=== PATIENT | female | born 1995 | race Caucasian/White ===

== ENCOUNTER → 2020-10-08 14:15 | Outpatient (BNVA) | payer SELFPAY | PROVIDERS: PCP Hospitalist | DX: Z11.1 Encounter for screening for respiratory tuberculosis (principal) ==

== ENCOUNTER → 2021-05-23 08:33 | Outpatient (BNVA) | payer BC, SELFPAY | PROVIDERS: PCP Hospitalist; Visit Provider Advanced Practice Midwife ==

== ENCOUNTER 2021-07-02 08:40 | Outpatient (REF) | payer BC, SELFPAY ==
[2021-07-03 13:46] LABS: CT PCR NOT DETECTED (Not Detect.); NG PCR NOT DETECTED (Not Detect.)
[2021-07-04 12:12] LABS: BV Int Neg Control Negative (Negative); BV Int Pos Control Positive (Positive)
[2021-07-17 20:37] LABS: HPV mRNA E6/E7 rflx Not Detected (Not Detected)
== END 2021-07-02 08:41 | disposition home or self-care (01) ==
LOC: HO.LAB 08:40
PROVIDERS: PCP Hospitalist; Visit Provider Advanced Practice Midwife
DX: Z30.432 Encounter for removal of intrauterine contraceptive device (principal); Z30.09 Encounter for other general counseling and advice on contraception; E66.9 Obesity, unspecified; Z20.2 Contact with and (suspected) exposure to infections with a predominantly sexual mode of transmission
CPT/HCPCS: 58301; 81025; 87480; 87491; 87510; 87591; 87624; 87660; 88142

== ENCOUNTER → 2022-04-02 09:16 | Outpatient (RCR) | payer OTHER, SELFPAY ==
[2020-04-25 06:59] LABS: COVID-19 Test Negative (Negative)
[2020-05-04 07:52] LABS: COVID-19 Test Negative (Negative); IDNOW Serial# 55D5AD1C
[2020-05-09 14:24] LABS: COVID-19 Test Negative (Negative)
[2020-05-15 09:48] LABS: COVID-19 Test Negative (Negative)
== END | disposition home or self-care (01) ==
LOC: HO.EMPCOV 04-25 06:31
PROVIDERS: Visit Provider Internal Medicine
DX: Z20.828 Contact with and (suspected) exposure to other viral communicable diseases (principal)
CPT/HCPCS: 87635; C9803

== ENCOUNTER 2023-01-19 10:31 | Outpatient (REF) | payer OTHER, SELFPAY ==
[2023-01-20 05:54] LABS: CT PCR NOT DETECTED (Not Detect.); NG PCR NOT DETECTED (Not Detect.)
[2023-01-20 12:06] LABS: BV Int Neg Control Negative (Negative); BV Int Pos Control Positive (Positive)
[2023-01-24 09:44] LABS: HPV mRNA E6/E7 rflx Not Detected (Not Detected)
== END 2023-01-19 10:32 | disposition home or self-care (01) ==
LOC: HO.LNP 10:31
PROVIDERS: PCP Hospitalist; Visit Provider Advanced Practice Midwife
DX: Z01.419 Encounter for gynecological examination (general) (routine) without abnormal findings (principal); Z11.51 Encounter for screening for human papillomavirus (HPV); Z87.42 Personal history of other diseases of the female genital tract
CPT/HCPCS: 0353U; 87480; 87510; 87624; 87660; 88142

== ENCOUNTER 2023-01-19 10:31 | Outpatient (AMB) | payer OTHER, SELFPAY ==
--- NOTE | 2023-01-19 11:13 | A.OFFVIS_ITS ---
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 She is open to but she and her partner are just enjoying the summer and while they are not planning to get very fixated on it she would love it if she would conceive in February so she could deliver. in November. 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 [facility] Medical History Hypertension Surgical History No pertinent past surgical history Family History Mother Primary ovarian malignancy of unknown cell type Father Bipolar 1 disorder, depressed Maternal Grandmother Ovarian cancer Brother In good health Social History (Updated 01/19/23 @ 11:21 by SMA Ivana) Alcohol intake: current Alcohol intake frequency: other Alcohol type: beer Patient Tobacco Use Status: Never used Tobacco Substance Use Type: Marijuana Gender identity: Female Female Reproductive History Menstrual Age of Menarche: 11 Duration of menses: 3-5 days Date of last menstrual period: 12/27/22 control method: none Total pregnancies: 0 Number of Living Children: 0 Date of last pap smear: 07/03/21 (ASCUS) History of abnormal pap smear: Yes Physical Exam Vital Signs: Last Vital Signs BP 120/54 L 01/19/23 11:16 BMI result Body Mass Index 36.5 Const General: healthy appearing, comfortable, no acute distress, well developed and alert Nutritional Appearance: average body habitus Orientation/consciousness: patient oriented x3 Limitations: no limitations HEENT Head: Yes normocephalic Neck Neck: Yes normal visual inspection Thyroid: Thyroid normal Chest Chest palpation & inspection: normal inspection of the chest Breast/axilla inspection: normal inspection of the breasts and normal inspection of the axillae Breast/axilla palpation: normal palpation of the breasts and normal palpation of the axillae Resp Effort & Inspection: normal respiratory effort GI Inspection: Yes normal to inspection, No Abdominal wall edema and No distended Palpation (GI): Soft to palpation and nontender General: Yes bladder normal to palpation External Female Exam: normal external appearance and normal appearance of the ur ethra Speculum Exam - Vagina: normal appearance of the vagina, normal palpation and normal vaginal discharge Speculum Exam - Cervix: normal appearance of the cervix, normal palpation and nontender Bimanual exam- vagina & uterus: normal bimanual exam, normal palpation, uterine size normal, bladder normal to palpation, consistency normal, normal palpation, uterine mobility normal, uterine shape normal, No Cervical tenderness present, non-tender and no cervical motion tenderness Bimanual Exam- Adnexa, other: normal adnexae, no masses, normal and No adnexal tenderness Neuro General: patient oriented x3 Assessment & Plan Assessment & Plan (1) Cervical cancer screening: Comment: neg pap 02/02/18, 07/02/2021 Pap equals ASCUS with negative HPV.ASCCP rec 3 yr f/u; Pap with HPV done 01/19/23... Code(s): Z12.4 - Encounter for screening for malignant neoplasm of cervix (2) control counseling: Code(s): Z30.09 - Encounter for other general counseling and advice on contraception (3) Obesity (BMI 30.0-34.9): Code(s): E66.9 - Obesity, unspecified (4) Well woman exam with routine gynecological exam: Code(s): Z01.419 - Encounter for gynecological examination (general) (routine) without abnormal findings (5) Hx of abnormal cervical Pap smear: Code(s): Z87.42 - Personal history of other diseases of the female genital tract Plan -----Discussed in this visit the following: healthy balanced diet, regular and consistent exercise, getting recommended health screens, doing the best she can for her particular health concerns, kegel exercises, pap smear screening and followup recommendations, mammography screening and SBE, normal changes in cycles in her life stage--- .---I discussed with pt some of the optimal strategies for planning a , including achieving the best health she can before , including heathy balanced diet, exercise, wt loss to ideal BMI if appropriate, avoiding toxic substances and medications, not smoking, and taking a multivitamin w folic acid daily. Any specific health concerns should be managed before seeking/ putting oneself at risk of pregancy. In addition I reviewed normal cycles, fertility awareness and signs of ovulation, and timing to avoid, and achieve when she feel ready. I also discussed emotional and relationship and support readiness before embarking on . Even though ASCCP recommends follow-up Pap for ASCUS with negative HPV in 3 years I repeated the Pap out of an abundance of caution Pap today. Testing for STIs was also offered patient declines the blood work part. Discussed being in the best health possible before conception also discussed that if she does get options include coming here for care and delivering at [facility] but also her options would include seeking out care and full care at either [facility] or [facility] from the start and that way getting to know the team of providers who would be involved in her care discussed that the choice would be hers and discussed some pros and cons. Discussed in general terms the challenges of obesity and challenges for her health and efforts she is engaging in to manage this including dietary changes water intake attention to sleep inclusion of a regular exercise have it and dealing with the may need stressors of life that can contribute to obesity in general. Encouraged her to continue in all have her best efforts Acknowledged the lifelong challenges of wait for those of us who have always been heavier and all of the issues to pay attention to she is working out she is drinking lots of water and she is doing her best to watch what she eats. She has lost some weight recently and feels good about that and she overall feels well.. She is taking multivitamins and vitamins and probiotics she probably only needs to take the vitamins at this point. Rather than duplicating vitamins. Orders: Orders Bacterial Vaginosis Panel Today Z01.419 - Encounter for gynecological examination (general) (routine) without abnormal findings CT NG by PCR Today Z01.419 - Encounter for gynecological examination (general) (routine) without abnormal findings Pap Smear Today Z01.419 - Encounter for gynecological examination (general) (routine) without abnormal findings, Z12.4 - Encounter for screening for malignant neoplasm of cervix, Z87.42 - Personal history of other diseases of the female genital tract Coding Level of Care Code Est Pt Prev Care [id number]) Diagnoses Cervical cancer screening Z12.4 control counseling Z30.09 Obesity (BMI 30.0-34.9) E66.9 Well woman exam with routine gynecological exam Z01.419 Hx of abnormal cervical Pap smear Z87.42
[2023-01-19 11:16] VITALS: BP 120/54; BMI 36.5
== END 2023-01-19 12:11 | disposition home or self-care (01) ==
LOC: HO.HWS 10:31
PROVIDERS: PCP Hospitalist; Visit Provider Advanced Practice Midwife
DX: Z01.419 Encounter for gynecological examination (general) (routine) without abnormal findings (principal); Z12.4 Encounter for screening for malignant neoplasm of cervix; Z30.09 Encounter for other general counseling and advice on contraception; E66.9 Obesity, unspecified; Z87.42 Personal history of other diseases of the female genital tract
CPT/HCPCS: 99395

== ENCOUNTER → 2023-02-13 10:04 | Outpatient (BNVA) | payer OTHER, SELFPAY | PROVIDERS: PCP Hospitalist; Visit Provider Internal Medicine | DX: Z13.89 Encounter for screening for other disorder (principal) | CPT/HCPCS: 99203 ==